=== PATIENT | male | born 1975 | race Caucasian/White ===

== ENCOUNTER 2023-12-12 14:09 | Outpatient (CLI) | payer BC, SELFPAY ==
--- NOTE | ~2023-12-12 | XR_ITS ---
3 VIEWS LUMBAR SPINE Ordering provider: Deion Hancock MD History: . M54.30 - Sciatica, unspecified side . Comparison: None. FINDINGS: VERTEBRAL BODIES:Lumbarization of S1. No visible fracture or subluxation. DISK SPACES: Normal. SOFT TISSUES: Normal. IMPRESSION: No acute osseous abnormality lumbar spine. Reviewed, dictated and finalized at location A.
== END 2023-12-12 14:10 | disposition home or self-care (01) ==
PROVIDERS: PCP Family Medicine; Visit Provider Family Medicine
DX: M54.30 Sciatica, unspecified side (principal)
CPT/HCPCS: 72110

== ENCOUNTER 2024-01-27 10:31 | Outpatient (CLI) | payer BC, SELFPAY ==
--- NOTE | ~2024-01-27 | MR_ITS ---
EXAMINATION: MR lumbar spine wo con DATE: 01/27/2024 11:02 INDICATION: Low back pain, sciatica, unspecified side. TECHNIQUE: Magnetic resonance imaging (MRI) of the lumbar spine was performed without intravenous con trast. Sequences included sagittal T2-weighted FSE, sagittal T2-weighted FS FSE, sagittal T1-weighted FSE, and axial T2-weighted FSE. COMPARISON: Lumbar spine radiographs 12/12/23 FINDINGS: There is 5 degrees levocurvature of lumbar spine. S1 is a transitional segment. There are S chmorl's nodes at multiple levels. Intervertebral disc heights are normal. The distal spinal cord sig nal intensity is normal. The conus medullaris is at L1. The following disc levels are specifically di scussed: L1-L2: The disc does not extend beyond the endplate margin. There is no facet joint osteoarthritis. T here is no neural foraminal stenosis. There is no central canal stenosis. L2-L3: The disc does not extend beyond the endplate margin. There is mild bilateral facet joint osteo arthritis. There is no neural foraminal stenosis. There is no central canal stenosis. L3-L4: The disc does not extend beyond the endplate margin. There is mild right and moderate left fac et joint osteoarthritis. There is no neural foraminal stenosis. There is no central canal stenosis. L4-L5: The disc is bulging and has an annular fissure. There is mild bilateral facet joint osteoarthr itis. There is mild right neural foraminal stenosis. There is mild central canal stenosis. L5-S1: The disc is bulging and has an annular fissure. There is mild bilateral facet joint osteoarthr itis. There is mild bilateral neural foraminal stenosis. There is mild central canal stenosis. IMPRESSION: 1. Mild lumbar spondylosis. Reviewed, dictated and finalized at location A. [employer] IMPRESSION: 1. Mild lumbar spondylosis.
== END 2024-01-27 10:32 | disposition home or self-care (01) ==
PROVIDERS: PCP Family Medicine; Visit Provider Family Medicine
DX: M47.816 Spondylosis without myelopathy or radiculopathy, lumbar region (principal)
CPT/HCPCS: 72148

== ENCOUNTER 2024-03-10 15:30 | Outpatient (RCR) | payer BC, SELFPAY ==
--- NOTE | 2024-01-20 14:51 | OPREHPOC ---
Outpatient Therapy Plan of Care This is a Multidisciplinary Plan of Care that may contain components documented by all disciplines (PT, OT, and ST.) PT Problem 1 PT Problem #1 Knowledge Deficit PT Goal 1 Goal / Goal Update 1. Patient will perform independent HEP Target Visit 4 PT Problem 2 PT Problem #2 Pain PT Goal 1 Goal / Goal Update 1. Back pain with typical activities no higher than 3/10 2. No pain with palpation Target Visit 10 PT Problem 3 PT Problem #3 Impaired Functional ADLs PT Goal 1 Goal / Goal Update 1. 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 Hip abduction 5/5 emmanuelle Target Visit 10 PT Problem 5 PT Problem #5 Impaired Range of Motion PT Goal 1 Goal / Goal Update 1. Full, pain free lumbar range of motion for bending tasks Target Visit 10
--- NOTE | 2024-01-20 14:51 | PTOPEVAL1 ---
Assessment and note entered by Laura Louis DPT Evaluation Information Assessment Status Evaluation ICD-10 Condition Codes (PT) Pain in low back M54.50,M54.16 Subjective Information Pt reports back pain. In May he started walking his neighborhood and by November while walking felt like he pulled a muscle . It has not gotten better since then. Pain is lumbar and thoracic and feels like he has to crack his back a lot. Pain has radiated posteriorly down both legs L>R. Highest pain recently 7/10 and lowest 2/10. Pain feels better in the morning and worsens throughout the day. Pain with sitting and standing, pain with walking if walking a lot. Intermittent numbness and tingling. 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 Voices frustration about not being able to do his normal exercise routine. Patient goal: have my back feel like it did a few months ago Return to MD is not scheduled. MRI scheduled on Saturday. Reported Pain Level Pain Score 4: Self Report Assessment PT Clinical Summary The patient is presenting to skilled therapy with a several month history of radiating LBP. He presents with decreased hip and core strength, range of motion impairments, and increased muscle tone which are contributing to his pain and difficulty with typical activities including sitting at work or doing dishes. He will benefit from skilled therapy to address these impairments in order to eliminate pain and restore full function. Plan of Care Interventions Electrical Stimulation,Gait Training,Hot Pack/Cold Pack,Manual Therapy,Neuro Re-education,Patient/ Caregiver Education,Therapeutic Activities, Therapeutic Exercise PT Services Indicated Yes Treatment Frequency and 1-2 times a week for 10 visits Duration These treatments will address the objective and functional deficits as defined above. The patient will be advanced safely and appropriately in order for the patient to progress towards his/her prior level of function. Additional exercises will be introduced and as well as a comprehensive home exercise program upon discharge, if needed, ?to ensure carryover of functional gains achieved in the clinic. This treatment plan has been reviewed and agreement upon by the patient.
--- NOTE | 2024-02-20 10:08 | PCPTNOTE ---
Patient called to cancel therapy this date due to illness.
--- NOTE | 2024-03-10 16:37 | OPREHPOC ---
Outpatient Therapy Plan of Care This is a Multidisciplinary Plan of Care that may contain components documented by all disciplines (PT, OT, and ST.) PT Problem 1 PT Problem #1 Knowledge Deficit PT Goal 1 Goal / Goal Update 1. Patient will perform independent HEP Target Visit 4 Progress Met PT Problem 2 PT Problem #2 Pain PT Goal 1 Goal / Goal Update 1. Back pain with typical activities no higher than 3/10 2. No pain with palpation Target Visit 10 Progress Met PT Problem 3 PT Problem #3 Impaired Functional ADLs PT Goal 1 Goal / Goal Update 1. 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 Hip abduction 5/5 emmanuelle Target Visit 10 Progress Met PT Problem 5 PT Problem #5 Impaired Range of Motion PT Goal 1 Goal / Goal Update 1. Full, pain free lumbar range of motion for bending tasks Target Visit 10 Progress Met
--- NOTE | 2024-03-10 16:38 | PTOPDC ---
Assessment and note entered by Shaun López, PT Evaluation Information Assessment Status Discharge ICD-10 Condition Codes (PT) Pain in low back M54.50,Radiculopathy, lumbar region M54.16 Subjective Information Reports that overall he is doing much better. Feels that he is at his pre-injury baseline. Feels comfortable with HEP and continues to perform it with regularity. Reported Pain Level Pain Score 3: Self Report Assessment PT Clinical Summary Patient met all goals for therapy and is suitable for discharge to [facility] at this time. Plan of Care PT Services Indicated Yes
== END 2024-03-11 14:05 | disposition home or self-care (01) ==
LOC: ANHGOSHPT 15:30
PROVIDERS: PCP Family Medicine; Visit Provider Family Medicine
DX: M54.30 Sciatica, unspecified side (principal); M54.50 Low back pain, unspecified; M54.16 Radiculopathy, lumbar region
CPT/HCPCS: 97014; 97110; 97112; 97140; 97161; 97530; G0283